=== PATIENT | female | born 1945 | race Caucasian/White ===

== ENCOUNTER → 2016-11-16 | Outpatient (CLI) | payer OTHER ==
[~2016-11-16] VITALS: Ht 167.6 cm; Wt 76.2 kg
[~2016-11-16] MED LIST: ASPIR 8181 MG PO; CALCIUM 500 +1 EAC5 PO; COSAMIN DS TAB1 EACH PO; FISH OIL 1,001000 M2 PO; FLEXERIL PO; HYDROCHLOROTHIA25 M2 PO; LIPITOR 20 MG T20 M1 PO; LISINOPRIL5 MG PO; LUTEIN6 MG PO; MAGNESIUM250 M1 PO; MEDROLDOSEPACK PO; MELOXICAM7.5 MG PO; NORCO 5-325 TA1 EACH PO; OMEPRAZOLE 20 M20 M1 PO; TENORMIN50 MG PO; UNICOMPLEX M TA1 TA1 PO; VITAMIN B-121000 MCG PO; VITAMIN D-32000 UNIT PO; VITAMINC500 PO
--- NOTE | ~2016-11-16 | HPC ---
[facility] [place] [address] PAIN MANAGEMENT CONSULTATION Name: DIANELYS CLIFTON Room #: REG VENKATA Liao#: [id number] Admission: 11/16/16 Attend Phys: Gaurang Bolton DO Discharge: Date of : 45 Report #: [id number] THIS REPORT FOR: //name// CC: Radha Bolton The patient is a 71-year-old female seen in consultation at the request of Dr. Richardson for evaluation of pain, left thigh paresthesia into the leg, exacerbated with walking. Past 6 weeks pain has become quite problematic to the point that walking is painful and difficult. Pain started about in March, but again in last 6 weeks it has been getting worse. She denies weakness, but does have paresthesia in the left thigh. Denies saddle anesthesia or bowel or bladder continence changes. It increased to the point that she presented to the ER on 11/07/2016. It sounds like she had an IM injection of Toradol, a possibly muscle relaxant. She has had a Medrol Dosepak in the past with transient relief. Uses some hydrocodone with normal efficacy. She notes past week she was using a cane in her right hand due to problems with functional status. The patient describes shooting, crushing, stabbing pain, rates anywhere from 4 to 8 on a 0-10 visual analog scale, again that is exacerbated with walking and moving and gets some relief when she is resting. REVIEW OF SYSTEMS: Complete review of systems attached to chart and gone over with the patient. She is , does not smoke or drink alcohol to excess. History of dyslipidemia for which she takes cholesterol, gastroesophageal reflux for which she takes omeprazole, hypertension for which she takes hydrochlorothiazide, lisinopril, and atenolol. History of glucose intolerance, on no current medications. History of cholecystectomy in 2005. She is retired. Pain impact score is 40 out of 70. PHYSICAL EXAMINATION GENERAL: Reveals a 5 feet 6 inches, 168-pound female, BMI is 27.1 kilograms per meter squared. VITAL SIGNS: Blood pressure is 157/87, pulse 70, respirations are 18. NEUROLOGIC: Cranial nerves 2-12 are grossly intact. HEENT: Pupils equal and reactive to light and accommodation. Extraocular muscles are intact. NECK: Thyroid is unremarkable. Cervical range of motion is full. HEART: Regular rhythmical without murmur. LUNGS: Clear to auscultation. EXTREMITIES: Upper extremity strength is preserved. Rises from chair using armrest, does have an antalgic gait favoring the left leg. Lumbar flexion is good to 90 degrees. Left hip flexion strength is diminished compared to the right. Modestly positive straight leg raise. The patellar reflex is diminished on the left. Achilles reflexes are symmetric. Skin integument is intact. [address] [address] PAIN MANAGEMENT CONSULTATION Name: DIANELYS CLIFTON [facility] [id number] Admission: 11/16/16 Attend Phys: Gaurang Bolton DO Discharge: Date of : 45 Report #: [id number] DIAGNOSTIC STUDIES: Include MRI of the lumbar spine from 11/12/2016. L2-L3 notes left-sided facet joint effusion and small synovial cyst, multilevel degenerative disk changes. There is a large left paracentral disk at L1-L2 abutting the margin of the L2 vertebral body. ASSESSMENT: Symptomatic lumbar radiculopathy by clinical exam. RECOMMENDATIONS: 1. Continue meloxicam. 2. Lumbar epidural injection under fluoroscopy at L2-L3. 3. Follow up in 3 weeks for reevaluation. We will likely start PT at that time. Thank you for allowing me to participate in the patient's care. I will keep you abreast of her progress. PROCEDURE: Lumbar epidural injection under fluoroscopy. PROCEDURE NOTE: After both written and informed consent to include risk of spinal cord damage, increased pain, weakness and dural puncture, the patient was taken to the fluoroscopy suite, placed in the prone position. After sterile prep and drape, a skin wheal with lidocaine was raised. A 22-gauge epidural Tuohy needle was inserted in the midline at L2-L3 with good loss to resistance. Negative aspiration for cerebrospinal fluid or blood was noted. Then 1 mL of Omnipaque under biplanar fluoroscopy showed good spread within the epidural space. This was followed with 80 mg of triamcinolone plus 1 mL of 1.5% preservative-free Xylocaine, 0.5 mL Xylocaine was then injected to flush the needle; it was removed. The patient was monitored for an appropriate period of time and discharged in good and stable condition. By: [id number] Gaurang Bolton DO /nt
[2016-11-16 13:40] VITALS: BP 157/87
== END ==
LOC: PAIN 06:57
DX: M54.16 Radiculopathy, lumbar region (principal); E78.5 Hyperlipidemia, unspecified; K21.9 Gastro-esophageal reflux disease without esophagitis; I10 Essential (primary) hypertension; Z90.49 Acquired absence of other specified parts of digestive tract; E11.9 Type 2 diabetes mellitus without complications